=== PATIENT | male | born 1980 | race Caucasian/White ===

== ENCOUNTER 2017-05-24 06:26 | Emergency (ER) | payer OTHER ==
[2017-05-24 06:56] VITALS: BP 132/85
[2017-05-24] MEDS ORDERED: LIDOCAINE PATCH 5% TOP STA (07:11)
[2017-05-24] MEDS ORDERED: DEXAMETHASONE 10 MG/ML VIAL PO STA (07:12)
[2017-05-24] MEDS ORDERED: CYCLOBENZAPRINE 10 MG TABLET PO STA (07:12)
--- NOTE | 2017-05-24 07:22 | ED Physician Documentation ---
History of Present Illness - Stated complaint Stated Complaint: NECK PX/HEADACHE 2ND TO INJURY - Chief complaint Chief Complaint: Back Pain - Additonal information Additional information: hx from pt 37 male injured R AC and rotator cuff last fall in PT has had some pain down arm to 5th finger and occ weakness since last night taking a shower, lowered his arms from washing hair and felt pain and spasm to R deltoid region rad to neck and head no fever no cough no CP no SOA no abd pain Review of Systems Constitutional: denies: Fever Cardiac: denies: Chest pain / pressure Respiratory: denies: Dyspnea GI: denies: Abdominal Pain Musculoskeletal: reports: Extremity pain Neurologic: reports: Focal weakness PD PAST MEDICAL HISTORY - Past Medical History Past Medical History: Yes Musculoskeletal: Chronic back pain - Past Surgical History Past Surgical History: No - Present Medications Home Medications: Ambulatory Orders Medication Instructions Recorded Confirmed Carisoprodol [Soma] 350 mg PO Q8H PRN #15 tablet 05/24/17 Ibuprofen [Motrin] 800 mg PO Q8H PRN #30 tablet 05/24/17 Lidocaine Patch 5% [Lidoderm Patch] 1 each TOP DAILY PRN #10 patch 05/24/17 - Allergies Allergies/Adverse Reactions: Allergies Allergy/AdvReac Type Severity Reaction Status Date / Time No Known Drug Allergies Allergy Verified 05/24/17 06:56 - Social History Does the pt smoke?: No Smoking Status: Former smoker Does the pt drink ETOH?: No Does the pt have substance abuse?: Yes Substance Use and Type: Marijuana - Immunizations Immunizations are current?: Yes - POLST Patient has POLST: No PD ED PE NORMAL - Vitals Vital signs reviewed: Yes - General General: Alert and oriented X 3 - HEENT HEENT: PERRL - Neck Neck: Other (soft tissue right and post middle sided mm spasm and TTP, limited ROM, tight and spasmed deltoid, some TTP to trap as well, nl sensation to arm, diff moving shoulder but [employer] [facility] finger ABD wrist ext OK and thumbs up all 5/5, + cap refill, + radial pulse) Results - Vitals Vitals: Vital Signs - 24 hr 05/24/17 06:30 Temperature 37 C Heart Rate 68 Respiratory 18 Rate Blood Pressure 132/85 H O2 Saturation 100 Oxygen O2 Source Room air PD MEDICAL DECISION MAKING - ED course ED course: exacerbartion of pre-existing shoulder injury with mm spasm and some paresthesia to 5th finger will tx with lido patch, soma (only have flexeril in ED though), decadron to decrease paresthesia Departure - Departure Disposition: 01 Home, Self Care Clinical Impression: Muscle spasm of right shoulder, Paresthesia of arm Condition: Good Instructions: ED Spasm Muscle, ED Paraesthesias Prescriptions: Carisoprodol [Soma] 350 mg PO Q8H PRN #15 tablet PRN Reason: muscle spasm Ibuprofen [Motrin] 800 mg PO Q8H PRN #30 tablet PRN Reason: Pain Lidocaine Patch 5% [Lidoderm Patch] 1 each TOP DAILY PRN #10 patch PRN Reason: Pain Comments: The dose of steroid we gave you in the ER should decrease the pain running down the arm to the 5th finger For the shoulder pain and muscle spasm I recommend a muscle relaxant called soma , lidocaine patches for up to 12 hr a day, and motrin and tylenol. Warm compresses/heating pad may help relax the muscles as well. Follow up with physical therapy. May wear the sling as needed for comfort but it is very important that you take the shoulder out of the sling and do some gentle range of motion several times a day to prevent scar tissue from forming and causing a "frozen" shoulder Return if worse Forms: Activity restrictions
[2017-05-24] MEDS ORDERED: ACETAMINOPHEN 325 MG TABLET PO STA (07:23)
[2017-05-24] MEDS ORDERED: CHERRY SYRUP 10 ML UDC PO ONE (07:24)
== END 2017-05-24 07:50 | disposition home or self-care (01) ==
LOC: ED 06:26
DX: M62.838 Other muscle spasm (principal); R20.0 Anesthesia of skin; Z87.891 Personal history of nicotine dependence; Z87.828 Personal history of other (healed) physical injury and trauma
CPT/HCPCS: 99283; A9270